=== PATIENT | male | born 1975 | race Caucasian/White ===

== ENCOUNTER → 2018-03-04 | Outpatient (CLI) | payer OTHER ==
[~2018-03-04] MED LIST: CELE200C PO; DULO60CA55 PO; GABA600T2 PO; LOSA100T7 PO; MULT-516 PO; OXYC-307 PO; TIZA4TAB PO
[2018-03-04 15:13] LABS: BASOPHILS # (AUTO) 0.05 x10^3/uL (0-0.1); BASOPHILS % (AUTO) 1 % (0-1); EOSINOPHILS # (AUTO) 0.25 x10^3/uL (0-0.4); EOSINOPHILS % (AUTO) 2 % (1-7); LYMPHOCYTES # (AUTO) 3.36 x10^3/uL (1-3.4); LYMPHOCYTES % (AUTO) 32 % (22-44); MD NO; MEAN CORPUSCULAR HGB CONC 33.6 g/dL (33.2-36.2); MEAN CORPUSCULAR VOLUME 92.2 fL (81-97); MONOCYTES # (AUTO) 0.67 x10^3/uL (0.2-0.8); MONOCYTES % (AUTO) 6 % (2-9); NEUTROPHILS # (AUTO) 6.31 x10^3/uL (1.8-6.8); NEUTROPHILS % (AUTO) 59 % (42-75); PLATELET COUNT 273 x10^3/uL (130-400); RED BLOOD COUNT 5.18 x10^6/uL (4.38-5.82); RED CELL DISTRIBUTION WIDTH 13.8 % (9.4-14.8)
[2018-03-04 15:14] LABS: HCT (SEDRATE) 47.8 % (39.2-51.8)
[2018-03-04 15:27] LABS: ALANINE AMINOTRANSFERASE 18 U/L (12-78); ANION GAP 9 mmol/L (5-15); CALCIUM 9.4 mg/dL (8.5-10.1); CHLORIDE 105 mmol/L (98-107); CREATININE 1.09 mg/dL (0.7-1.3)
[2018-03-04 15:29] LABS: ALKALINE PHOSPHATASE 97 U/L (45-117); BILIRUBIN,TOTAL 0.4 mg/dL (0.2-1.0); TOTAL PROTEIN 7.3 g/dL (6.4-8.2)
[2018-03-04 15:36] LABS: MICROSCOPIC NOT IND
[2018-03-04 15:43] LABS: CULTURE INDICATED? NO
[2018-03-04 16:02] LABS: INTERNATIONAL NORMALIZED RATIO 1.01 (0.93-1.1); PROTHROMBIN TIME 10.4 Seconds (9.6-11.5)
== END | disposition home or self-care (01) ==
LOC: STAR 14:18 → MERGE 14:30
PROVIDERS: ATTEND Orthopaedic Surgery Orthopaedic Surgery of the Spine
DX: Z01.818 Encounter for other preprocedural examination (principal); I10 Essential (primary) hypertension; Z87.891 Personal history of nicotine dependence; M43.16 Spondylolisthesis, lumbar region
CPT/HCPCS: 36415; 71046; 80053; 80074; 81003; 85025; 85610; 85651; 85730; 87806; 93005; G0475

== ENCOUNTER 2018-03-09 05:54 | Inpatient (IN) | payer OTHER ==
[~2018-03-09] VITALS: Ht 180.3 cm; Wt 106.6 kg
[~2018-03-09 05:54] MED LIST changes: -CELE200C PO
[2018-03-09] MEDS ORDERED: LACTATED RINGERS 1,000 ML IV SCH (06:52)
[2018-03-09] MEDS ORDERED: OXYcodone IR 5MG TABLET PO ONE (07:00)
[2018-03-09] MEDS ORDERED: GABAPENTIN 300 MG CAPSULE PO ONE (07:00)
[2018-03-09] MEDS ORDERED: ACETAMINOPHEN 500 MG TABLET PO ONE (07:00)
[2018-03-09] MEDS ORDERED: CELE200C PO (07:12)
[2018-03-09] MEDS ORDERED: FENTANYL PF 250 MCG/5ML ONE ×2 (07:36→11:00)
[2018-03-09] MEDS ORDERED: GENTAMICIN 80 MG/2 ML ONE (08:13)
[2018-03-09] MEDS ORDERED: HEPARIN 1,000 UNITS/ML, 30ML ONE (08:18)
[2018-03-09] MEDS ORDERED: BUPIVACAINE/PF-EPI 0.5% 1:200K ONE (08:21)
[2018-03-09] MEDS ORDERED: VANCOMYCIN 1,000 MG ONE ×2 (08:22→10:16)
[2018-03-09] MEDS ORDERED: morphine SULFATE/PF 1 MG/ML, 10ML ONE (08:22)
[2018-03-09] MEDS ORDERED: LIDOCAINE 1%-EPI 1:100K, 30ML ONE (08:22)
[2018-03-09] MEDS ORDERED: FENTANYL PF 100 MCG/2ML ONE (08:22)
[2018-03-09] MEDS ORDERED: THROMBIN 5,000 UNIT VIAL TP ONE (08:22)
[2018-03-09] MEDS ORDERED: BACITRACIN 50,000 UNIT ONE (08:23)
[2018-03-09] MEDS ORDERED: REMIFENTANIL 1 MG ONE ×2 (08:37→12:20)
[2018-03-09] MEDS ORDERED: LABETALOL 5MG/ML, 20ML IV PRN ×2 (10:00→18:30)
[2018-03-09] MEDS ORDERED: PROCHLORPERAZINE 5 MG/ML, 2ML IV PRN (10:00)
[2018-03-09] MEDS ORDERED: hydrALAzine 20 MG/ML, 1ML IV PRN (10:00)
[2018-03-09] MEDS ORDERED: FENTANYL PF 100 MCG/2ML IV PRN (10:00)
[2018-03-09] MEDS ORDERED: OXYcodone 5 MG/5 ML ORAL.SOL UDC PO PRN (10:00)
[2018-03-09] MEDS ORDERED: DIPHENHYDRAMINE 50 MG/ML, 1ML IVPush PRN ×2 (10:00→18:30)
[2018-03-09] MEDS ORDERED: PROPOFOL 50 ML ONE (12:17)
[2018-03-09] MEDS ORDERED: HYDROmorphone 2 MG/ML, 1ML ONE ×3 (13:33→15:49)
[2018-03-09] MEDS ORDERED: ONDANSETRON 2MG/ML, 2ML ONE (14:46)
[2018-03-09] MEDS ORDERED: GLYCOPYRROLATE 0.2MG/1ML, 5ML ONE (14:46)
[2018-03-09] MEDS ORDERED: SUCCINYLCHOLINE 20 MG/ML, 10ML ONE (14:46)
[2018-03-09] MEDS ORDERED: DEXAMETHASONE 4 MG/ML, 1ML ONE (14:46)
[2018-03-09] MEDS ORDERED: CEFAZOLIN 1,000 MG ONE ×2 (14:46)
[2018-03-09] MEDS ORDERED: PROPOFOL 10 MG/ML, 20ML ONE (14:46)
[2018-03-09] MEDS ORDERED: NEOSTIGMINE 1 MG/ML, 10ML ONE (14:46)
[2018-03-09] MEDS ORDERED: ROCURONIUM 10MG/ML,5ML ONE (14:46)
[2018-03-09] MEDS ORDERED: OXYcodone 5 MG/5 ML ORAL.SOL UDC ONE (14:50)
[2018-03-09] MEDS: HYDROmorphone 1 MG/ML, 1ML IV PRN ×6 (14:54→15:52)
[2018-03-09] MEDS: DIAZEPAM 5 MG/ML, 2ML IVPush PRN ×2 (15:02→16:00)
[2018-03-09] MEDS ORDERED: MEPERIDINE/PF 50 MG/ML ONE (15:27)
[2018-03-09] MEDS: MEPERIDINE/PF 25MG/0.5ML IVPush PRN ×2 (15:29→15:45)
[2018-03-09 16:40] VITALS: BP 115/73
[2018-03-09] MEDS ORDERED: CYCLOBENZAPRINE 10 MG TABLET PO PRN (18:30)
[2018-03-09] MEDS ORDERED: HYDROcodone/APAP 5/325 TABLET PO PRN (18:30)
[2018-03-09] MEDS ORDERED: PROMETHAZINE 25 MG/ML, 1ML IM PRN (18:30)
[2018-03-09] MEDS ORDERED: MAGNESIUM HYDROXIDE 8%, 30ML UDC PO PRN (18:30)
[2018-03-09] MEDS ORDERED: ONDANSETRON 2MG/ML, 2ML IV PRN (18:30)
[2018-03-09] MEDS ORDERED: ALBUTEROL SULFATE 2.5 MG/3 ML NPPB PRN (19:30)
[2018-03-09 19:50] VITALS: BP 117/73
[2018-03-09] MEDS: CEFAZOLIN PMX 1GM/50ML 50 ML IVPB SCH (20:11)
[2018-03-09] MEDS: GABAPENTIN 300 MG CAPSULE PO SCH (20:49)
[2018-03-09] MEDS: LOSARTAN 50MG TABLET PO SCH (20:50)
[2018-03-09] MEDS: FLUTICASONE NASAL SPRAY 16GM NAS SCH (20:50)
[2018-03-09] MEDS ORDERED: TRAZODONE 100MG TABLET PO SCH (21:00)
[2018-03-09] MEDS: D5%-0.9% NACL+KCL 20MEQ 1,000 ML IV SCH (21:04)
[2018-03-09 23:49] VITALS: BP 102/60
[2018-03-09] MEDS: OXYcodone/APAP 5/325MG TABLET PO PRN (23:56)
[2018-03-10] MEDS: CEFAZOLIN PMX 1GM/50ML 50 ML IVPB SCH ×3 (03:40→18:39)
[2018-03-10] MEDS: D5%-0.9% NACL+KCL 20MEQ 1,000 ML IV SCH ×3 (03:40→20:00)
[2018-03-10 04:49] VITALS: BP 117/73
[2018-03-10] MEDS: OXYcodone/APAP 5/325MG TABLET PO PRN ×5 (04:58→22:20)
[2018-03-10 05:40] LABS: MEAN CORPUSCULAR HEMOGLOBIN 31.8 pg (27.5-34.5); MEAN CORPUSCULAR HGB CONC 33.9 g/dL (33.2-36.2); MEAN CORPUSCULAR VOLUME 93.8 fL (81-97); MEAN PLATELET VOLUME 9.1 fL (7.4-10.4); PLATELET COUNT 255 x10^3/uL (130-400); RED BLOOD COUNT 4.17 x10^6/uL (4.38-5.82); RED CELL DISTRIBUTION WIDTH 13.5 % (9.4-14.8)
[2018-03-10 05:43] LABS: CHLORIDE 111 mmol/L (98-107)
[2018-03-10 05:46] LABS: ANION GAP 4 mmol/L (5-15); CREATININE 1.02 mg/dL (0.7-1.3)
[2018-03-10 06:06] LABS: MD YES
[2018-03-10 06:07] LABS: BAND#(MANUAL) 0.64 x10^3/uL; BANDS%(MANUAL) 3 % (0-7); LYMPH#(MANUAL) 2.14 x10^3/uL (1-3.4); LYMPHS% (MANUAL) 10 % (22-44); MONOS#(MANUAL) 1.07 x10^3/uL (0.3-2.7); MONOS% (MANUAL) 5 % (2-9); SEG#(MANUAL) 17.55 x10^3/uL (1.8-6.8); SEGS% (MANUAL) 82 % (42-75)
[2018-03-10 06:08] LABS: <PLATELET ESTIMATE> ADEQUATE; <PLT MORPHOLOGY> NORMAL PLT MORPH; <RBC MORPHOLOGY> NORMAL
[2018-03-10 07:35] VITALS: BP 112/72
[2018-03-10] MEDS: LORATADINE 10 MG TABLET PO SCH (08:22)
[2018-03-10] MEDS: GABAPENTIN 300 MG CAPSULE PO SCH ×2 (08:22→21:52)
[2018-03-10] MEDS: LOSARTAN 50MG TABLET PO SCH ×2 (08:23→08:31)
[2018-03-10] MEDS: DULOXETINE 30 MG CAPSULE.DR PO SCH (08:23)
[2018-03-10] MEDS: SENNA/DOCUSATE TABLET PO SCH (08:23)
[2018-03-10] MEDS ORDERED: NICOTINE 21 MG/24 HR PATCH.TD24 TD SCH (13:00)
[2018-03-10 14:17] VITALS: BP 121/69
[2018-03-10] MEDS: FLUTICASONE NASAL SPRAY 16GM NAS SCH ×2 (14:45→21:53)
[2018-03-10] MEDS ORDERED: NICOTINE 7 MG/24 HR PATCH.TD24 TD SCH (18:00)
[2018-03-10 20:08] VITALS: BP 139/82
[2018-03-10] MEDS ORDERED: TRAZODONE 100MG TABLET PO SCH (21:00)
[2018-03-10] MEDS ORDERED: ZOLPIDEM 5MG TABLET PO PRN (21:00)
[2018-03-11 01:50] VITALS: BP 115/71
[2018-03-11] MEDS: D5%-0.9% NACL+KCL 20MEQ 1,000 ML IV SCH ×2 (02:40→09:20)
[2018-03-11] MEDS: CEFAZOLIN PMX 1GM/50ML 50 ML IVPB SCH ×2 (03:48→11:15)
[2018-03-11 05:28] LABS: BASOPHILS # (AUTO) 0.05 x10^3/uL (0-0.1); BASOPHILS % (AUTO) 1 % (0-1); EOSINOPHILS # (AUTO) 0.11 x10^3/uL (0-0.4); EOSINOPHILS % (AUTO) 1 % (1-7); LYMPHOCYTES # (AUTO) 2.88 x10^3/uL (1-3.4); LYMPHOCYTES % (AUTO) 26 % (22-44); MD NO; MEAN CORPUSCULAR HEMOGLOBIN 31.3 pg (27.5-34.5); MEAN CORPUSCULAR HGB CONC 33.5 g/dL (33.2-36.2); MEAN CORPUSCULAR VOLUME 93.2 fL (81-97); MEAN PLATELET VOLUME 9.3 fL (7.4-10.4); MONOCYTES # (AUTO) 0.99 x10^3/uL (0.2-0.8); MONOCYTES % (AUTO) 9 % (2-9); NEUTROPHILS # (AUTO) 6.93 x10^3/uL (1.8-6.8); NEUTROPHILS % (AUTO) 63 % (42-75); PLATELET COUNT 208 x10^3/uL (130-400); RED BLOOD COUNT 3.63 x10^6/uL (4.38-5.82); RED CELL DISTRIBUTION WIDTH 13.8 % (9.4-14.8)
[2018-03-11] MEDS: OXYcodone/APAP 5/325MG TABLET PO PRN ×3 (05:58→14:02)
[2018-03-11 06:43] VITALS: BP 135/89
[2018-03-11] MEDS: GABAPENTIN 300 MG CAPSULE PO SCH (08:48)
[2018-03-11] MEDS: DULOXETINE 30 MG CAPSULE.DR PO SCH (08:48)
[2018-03-11] MEDS: SENNA/DOCUSATE TABLET PO SCH (08:48)
[2018-03-11] MEDS: LORATADINE 10 MG TABLET PO SCH (08:48)
[2018-03-11] MEDS: FLUTICASONE NASAL SPRAY 16GM NAS SCH (08:51)
[2018-03-11] MEDS: LOSARTAN 50MG TABLET PO SCH (08:51)
[2018-03-11 08:55] VITALS: BP 111/67
[2018-03-11 13:37] VITALS: BP 114/80
[2018-03-11] MEDS ORDERED: NICO-487 TD (13:55)
[2018-03-11] MEDS ORDERED: OXYC5TAB3 PO (14:07)
== END 2018-03-11 14:35 | disposition home or self-care (01) | DRG 460 ==
LOC: ORIP 05:54 → 4NOR 16:24 → DCLOUNGE 03-11 14:19
PROVIDERS: ADMIT Orthopaedic Surgery Orthopaedic Surgery of the Spine; ATTEND Orthopaedic Surgery Orthopaedic Surgery of the Spine
PROC: 0SB20ZZ Excision of Lumbar Vertebral Disc, Open Approach (ICD-10-PCS; 2018-03-09)
PROC: 0QB20ZZ Excision of Right Pelvic Bone, Open Approach (ICD-10-PCS; 2018-03-09)
PROC: 0SG3071 Fusion of Lumbosacral Joint with Autologous Tissue Substitute, Posterior Approach, Posterior Column, Open Approach (ICD-10-PCS; 2018-03-09)
PROC: 4A11X4G Monitoring of Peripheral Nervous Electrical Activity, Intraoperative, External Approach (ICD-10-PCS; 2018-03-09)
PROC: 3E0R3BZ Introduction of Anesthetic Agent into Spinal Canal, Percutaneous Approach (ICD-10-PCS; 2018-03-09)
PROC: 00HU33Z Insertion of Infusion Device into Spinal Canal, Percutaneous Approach (ICD-10-PCS; 2018-03-09)
PROC: 0SG1071 Fusion of 2 or more Lumbar Vertebral Joints with Autologous Tissue Substitute, Posterior Approach, Posterior Column, Open Approach (ICD-10-PCS; principal; 2018-03-09 08:30)
DX: M51.16 Intervertebral disc disorders with radiculopathy, lumbar region (principal); M41.86 Other forms of scoliosis, lumbar region; M43.16 Spondylolisthesis, lumbar region; M48.061 Spinal stenosis, lumbar region without neurogenic claudication; G47.00 Insomnia, unspecified; M53.2X6 Spinal instabilities, lumbar region; D64.9 Anemia, unspecified; M25.511 Pain in right shoulder; G89.29 Other chronic pain; I10 Essential (primary) hypertension; Z80.42 Family history of malignant neoplasm of prostate; Z80.6 Family history of leukemia; Z82.49 Family history of ischemic heart disease and other diseases of the circulatory system; Z82.5 Family history of asthma and other chronic lower respiratory diseases; Z79.899 Other long term (current) drug therapy; Z87.891 Personal history of nicotine dependence; Z90.49 Acquired absence of other specified parts of digestive tract
CPT/HCPCS: 36415; 72100; J3490; 80048; 85025; 86850; 86900; 86923; C1713; G0378; J0690; J1100; J1170; J1644; J2175; J2270; J2274; J2405; J2704; J2710; J3010; J3360; J3370; C1751; C1762; J0330; J1200; J1580; J3480; J7120

== ENCOUNTER 2018-04-24 13:12 | Observation (INO) | payer OTHER ==
[~2018-04-24] VITALS: Ht 180.3 cm; Wt 94.0 kg
[~2018-04-24 13:12] MED LIST changes: +CELE200C PO; +NICO-487 TD; +OXYC5TAB3 PO
[2018-04-24] MEDS ORDERED: SODIUM CHLORIDE FLUSH 10ML SYR IVF ONE (13:30)
[2018-04-24] MEDS ORDERED: ONDANSETRON 2MG/ML, 2ML IVPush ONE (13:30)
[2018-04-24] MEDS ORDERED: OXYC10TA6 PO (13:34)
[2018-04-24] MEDS ORDERED: TRAZ-137 PO (13:35)
[2018-04-24] MEDS ORDERED: ONDANSETRON 2MG/ML, 2ML ONE (13:37)
[2018-04-24] MEDS ORDERED: MORPHINE SULFATE 4 MG/ML, 1ML ONE ×2 (13:37→14:24)
[2018-04-24] MEDS: MORPHINE SULFATE 4 MG/ML, 1ML IVPush PRN ×2 (13:40→14:29)
[2018-04-24 14:03] LABS: BASOPHILS # (AUTO) 0.04 x10^3/uL (0-0.1); BASOPHILS % (AUTO) 0 % (0-1); EOSINOPHILS # (AUTO) 0.17 x10^3/uL (0-0.4); EOSINOPHILS % (AUTO) 1 % (1-7); LYMPHOCYTES # (AUTO) 2.48 x10^3/uL (1-3.4); LYMPHOCYTES % (AUTO) 20 % (22-44); MD NO; MEAN CORPUSCULAR HEMOGLOBIN 30.4 pg (27.5-34.5); MEAN CORPUSCULAR HGB CONC 33.8 g/dL (33.2-36.2); MEAN PLATELET VOLUME 9.3 fL (7.4-10.4); MONOCYTES # (AUTO) 0.78 x10^3/uL (0.2-0.8); MONOCYTES % (AUTO) 6 % (2-9); NEUTROPHILS # (AUTO) 8.84 x10^3/uL (1.8-6.8); NEUTROPHILS % (AUTO) 72 % (42-75); PLATELET COUNT 329 x10^3/uL (130-400); RED BLOOD COUNT 4.88 x10^6/uL (4.38-5.82); RED CELL DISTRIBUTION WIDTH 13.8 % (9.4-14.8)
[2018-04-24 14:16] LABS: ALBUMIN 4.2 g/dL (3.4-5.0); ANION GAP 9 mmol/L (5-15); CALCIUM 9.6 mg/dL (8.5-10.1); CHLORIDE 108 mmol/L (98-107)
[2018-04-24 14:23] LABS: ALANINE AMINOTRANSFERASE 23 U/L (12-78); ALKALINE PHOSPHATASE 134 U/L (45-117); BILIRUBIN,TOTAL 0.5 mg/dL (0.2-1.0); CREATININE 1.12 mg/dL (0.7-1.3); TOTAL PROTEIN 7.4 g/dL (6.4-8.2); TROPONIN I < 0.015 ng/mL (0.000-0.045)
[2018-04-24] MEDS ORDERED: NITROGLYCERIN SINGLE TAB 0.4 MG SL ONE (14:24)
[2018-04-24] MEDS: NITROGLYCERIN SINGLE TAB 0.4 MG SL PRN ×2 (14:28→14:40)
[2018-04-24] MEDS ORDERED: SODIUM CHLORIDE FLUSH 10ML SYR IVF PRN (15:00)
[2018-04-24] MEDS ORDERED: morphine SULFATE 10 MG/ML, 1ML IVPush PRN (15:30)
[2018-04-24] MEDS ORDERED: ONDANSETRON 2MG/ML, 2ML IVPush PRN (15:30)
[2018-04-24] MEDS ORDERED: POLYETHYLENE GLYCOL 17 GM PACKET PO PRN (15:30)
[2018-04-24] MEDS ORDERED: NITROGLYCERIN 0.4 MG BOTTLE (25 TABS) SL PRN (15:30)
[2018-04-24] MEDS ORDERED: ACETAMINOPHEN 325 MG TABLET PO PRN (15:30)
[2018-04-24] MEDS ORDERED: BISACODYL 10 MG SUPP PR PRN (15:30)
[2018-04-24] MEDS ORDERED: LABETALOL 5MG/ML, 20ML IVPush PRN (15:30)
[2018-04-24] MEDS ORDERED: ENOXAPARIN 40 MG/0.4 ML SQ SCH (15:30)
[2018-04-24] MEDS ORDERED: DOCUSATE 100 MG CAPSULE PO PRN (15:30)
[2018-04-24 15:55] VITALS: BP 122/78
[2018-04-24] MEDS: KETOROLAC 30 MG/1 ML IV PRN ×2 (16:02→22:57)
[2018-04-24] MEDS ORDERED: OMNIPAQUE 350 MG/ML, 100ML BOTTLE ONE (17:01)
[2018-04-24] MEDS: OXYcodone IR 5MG TABLET PO PRN ×2 (17:18→23:03)
[2018-04-24] MEDS ORDERED: TADA10TA PO (17:21)
[2018-04-24] MEDS ORDERED: CALC500T PO (17:23)
[2018-04-24 18:44] LABS: TROPONIN I < 0.015 ng/mL (0.000-0.045)
[2018-04-24 20:01] VITALS: BP 108/68
[2018-04-24] MEDS ORDERED: TRAZODONE 100MG TABLET PO SCH (21:00)
[2018-04-24] MEDS ORDERED: TIZANIDINE 4MG TABLET PO SCH (21:00)
[2018-04-25 00:56] LABS: BASOPHILS # (AUTO) 0.05 x10^3/uL (0-0.1); BASOPHILS % (AUTO) 1 % (0-1); EOSINOPHILS # (AUTO) 0.28 x10^3/uL (0-0.4); EOSINOPHILS % (AUTO) 3 % (1-7); LYMPHOCYTES # (AUTO) 3.13 x10^3/uL (1-3.4); LYMPHOCYTES % (AUTO) 35 % (22-44); MD NO; MEAN CORPUSCULAR HEMOGLOBIN 30.6 pg (27.5-34.5); MEAN CORPUSCULAR HGB CONC 33.5 g/dL (33.2-36.2); MEAN CORPUSCULAR VOLUME 91.3 fL (81-97); MEAN PLATELET VOLUME 9.2 fL (7.4-10.4); MONOCYTES # (AUTO) 0.66 x10^3/uL (0.2-0.8); MONOCYTES % (AUTO) 8 % (2-9); NEUTROPHILS # (AUTO) 4.73 x10^3/uL (1.8-6.8); NEUTROPHILS % (AUTO) 53 % (42-75); PLATELET COUNT 276 x10^3/uL (130-400); RED BLOOD COUNT 4.34 x10^6/uL (4.38-5.82); RED CELL DISTRIBUTION WIDTH 14.3 % (9.4-14.8)
[2018-04-25 01:03] LABS: TROPONIN I < 0.015 ng/mL (0.000-0.045)
[2018-04-25 01:13] LABS: CHOL/HDL RATIO 4.9; LDL/HDL RATIO 3.2 (0.5-3.0)
[2018-04-25 01:52] VITALS: BP 101/69
[2018-04-25] MEDS ORDERED: ASPIRIN 325 MG TABLET EC PO SCH (06:00)
[2018-04-25] MEDS: OXYcodone IR 5MG TABLET PO PRN ×2 (06:12→12:19)
[2018-04-25] MEDS: KETOROLAC 30 MG/1 ML IV PRN ×2 (06:12→12:19)
[2018-04-25 07:23] VITALS: BP 109/71
[2018-04-25] MEDS ORDERED: REGADENOSON 0.4 MG/5 ML SYRINGE ONE (08:48)
[2018-04-25] MEDS ORDERED: LOSARTAN 50MG TABLET PO SCH (09:00)
[2018-04-25] MEDS ORDERED: DULOXETINE 30 MG CAPSULE.DR PO SCH (09:00)
[2018-04-25] MEDS ORDERED: MULTIVITAMIN 1 TABLET PO SCH (09:00)
[2018-04-25 12:42] VITALS: BP 107/70
== END 2018-04-25 14:56 | disposition home or self-care (01) ==
LOC: ED 14:36 → UNDOADMOB 15:07 → 5SO 15:07 → INTOOBSV 15:07 → 5SO 15:08 → UNDODISOB 04-25 14:56
PROVIDERS: ADMIT Internal Medicine; ATTEND Internal Medicine
DX: R07.9 Chest pain, unspecified (principal); D72.829 Elevated white blood cell count, unspecified; I11.9 Hypertensive heart disease without heart failure; F17.200 Nicotine dependence, unspecified, uncomplicated; G89.29 Other chronic pain; M51.26 Other intervertebral disc displacement, lumbar region; F32.9 Major depressive disorder, single episode, unspecified; F41.9 Anxiety disorder, unspecified; Z82.49 Family history of ischemic heart disease and other diseases of the circulatory system; Z23 Encounter for immunization
CPT/HCPCS: 36415; 71045; 71275; 78452; 80053; 80061; 84443; 84484; 85025; 85379; 90471; 90656; 93005; 93017; 96372; 96374; 96375; 96376; 99284; A9502; C9898; G0378; J1650; J1885; J2405; J2785; Q9967